=== PATIENT | female | born 1950 | race Caucasian/White ===

== ENCOUNTER 2017-07-13 11:25 | Emergency (ER) | payer MEDICARE ==
[~2017-07-13] VITALS: Ht 152.4 cm; Wt 64.5 kg
[~2017-07-13 11:25] MED LIST: ALEVE220 MG PO; ALPHAGAN OPHTH D5 ML; ALPHAGAN OPHTH D5 ML OP; BONIVA150 MG PO; CALCIUM600 M2 PO; DITROPAN XL 5MG5 M1; FEMARA; FEMARA 2.5MG2.5 MG PO; FOSAMAX 10M10 MG/TAB; LORTAB 5/500 501 TAB PO; OMEGA 3 120 MG-1 CAP PO; OXYBUTYNIN ER15 MG PO; SIMVASTATIN20 MG PO; TYLENOL 325MG325 MG PO; VITAMIN B-1000 MCG/T PO; VITAMIN D31000 IU PO; ZOCOR5 MG; ZOLOFT 25MG25 MG; ZOLOFT25 MG PO
[2017-07-13] MEDS ORDERED: XALATAN EYE DROPS OP (11:50)
[2017-07-13] MEDS ORDERED: NAPROSYN500 MG PO (14:08)
[2017-07-13] MEDS ORDERED: NORCO 325 MG-51 TAB PO (14:08)
[2017-07-13 14:09] VITALS: BP 134/77; PULSE 85
== END 2017-07-13 14:15 | disposition home or self-care (01) ==
LOC: COL.ER 11:25
DX: M25.551 Pain in right hip (principal); M54.31 Sciatica, right side; Z90.710 Acquired absence of both cervix and uterus; Z90.10 Acquired absence of unspecified breast and nipple; W19.XXXA Unspecified fall, initial encounter
CPT/HCPCS: J1100; J1885; J2360